=== PATIENT | female | born 1950 | race African-American/Black ===

== ENCOUNTER 2023-01-17 10:02 | Emergency (ER) | payer MEDICAID ==
[~2023-01-17] VITALS: Ht 157.5 cm; Wt 50.0 kg
[2023-01-17 11:12] LABS: CLARITY URINE CLEAR (CLEAR); COLOR URINE YELLOW (YELLOW); KETONES URINE NEGATIVE (NEGATIVE); LEUKOCYTE ESTERASE URINE NEGATIVE (NEGATIVE); NITRITE URINE NEGATIVE (NEGATIVE); OCCULT BLOOD URINE TRACE (NEGATIVE); PH URINE 5.5 (4.5-8.0); PROTEIN URINE NEGATIVE (NEGATIVE); SPECIFIC GRAVITY URINE 1.021 (1.005-1.030)
[2023-01-17] MEDS ORDERED: METR-167 PO (11:23)
[2023-01-17 11:58] VITALS: BP 147/60
== END 2023-01-17 12:00 | disposition home or self-care (01) ==
LOC: ER 10:18
DX: N76.0 Acute vaginitis (principal)
CPT/HCPCS: 81003; 87210; 99284; Z7610